=== PATIENT | male | born 1980 | race Caucasian/White ===

== ENCOUNTER 2017-09-05 10:21 | Emergency (ER) | payer BC, SELFPAY ==
[2017-09-05 10:23] VITALS: BP 152/92; PULSE 90; RESP 18; TEMP 37.1; O2SAT 97; BMI 34.7
--- NOTE | 2017-09-05 10:54 | ED.DCSUM_ITS ---
- ER Visit Summary Date of Service: 09/05/17 Chief Complaint: Flulike symptoms that started greater than 48 hours ago. History of Present Illness: The patient is a 36 M presents to the emergency department because his was concerned. He reports documented fever, chills , sweats, global headache, nasal congestion with sore throat, nonproductive cough with myalgias and arthralgias that started greater than 48 hours ago. He does report nausea with loose stools as well. He denies any rash. He denies photophobia sips of his neck. He is a non-smoker. He has no medical problems. He denies any joint swelling or redness. Physical Examination: Patient's vital signs are remarkable for a blood pressure 152/92. Head is atraumatic normocephalic. Pupils are equal round reactive. Extraocular muscles are intact. TMs are pearly white with landmarks noted. Nares patent with normal clear drainage and postnasal drainage. Posterior pharynx without erythema or exudate. Uvula is midline. There is no dysphonia or dysphasia. Trachea is midline. There is no stridor with auscultation of the neck. Heart is regular without murmur, gallop or rub. S1 and S2 are normal. Lungs are clear to auscultation with good movement of air bilaterally. There are no skin lesions noted. There is no redness or swelling of any major joints. Neuro exam is nonfocal. Test Results: None Emergency Department Course and Treatment: Patient was informed he has influenza and that there is no treatment. Recommended ibuprofen every 8 hours and drink plenty of fluids. Treatment Plan: Symptomatic treatment and appropriate home-going instructions Disposition: Discharge to home Impression: Influenza This note was generated with [employer] dictation software. It may contain incorrect words, spelling, and punctuation that were not noted in review of the chart prior to signing ED Disposition - Plan for ED Patient: Disposition: Home or Assisted Living Chief Complaint: General Illness Instructions: ED Flu Referrals: Hay Parks MD [Primary Care Provider] - 1 Week if not improving Additional Instructions: Take 4 Advil every 8 hours for the next 2-5 days for symptomatic treatment of your aches and to control your fever. Drink plenty of fluids.
== END 2017-09-05 11:15 | disposition home or self-care (01) ==
PROVIDERS: Emergency Provider Emergency Medicine; Family Provider Family Medicine; PCP Family Medicine
DX: J11.1 Influenza due to unidentified influenza virus with other respiratory manifestations (principal)
CPT/HCPCS: 99282